=== PATIENT | female | born 1955 | race Caucasian/White ===

== ENCOUNTER 2019-03-21 14:27 | Emergency (ER) | payer MEDICAID ==
[~2019-03-21] VITALS: Ht 165.1 cm; Wt 68.9 kg
[2019-03-21 14:43] VITALS: BP 156/79; PULSE 69; RESP 20; Ht 165.1 cm; Wt 68.9 kg
== END 2019-03-21 17:20 | disposition home or self-care (01) ==
LOC: FTE 14:27
DX: S00.83XA Contusion of other part of head, initial encounter (principal); R51 Headache; S00.12XA Contusion of left eyelid and periocular area, initial encounter; S00.11XA Contusion of right eyelid and periocular area, initial encounter; W01.198A Fall on same level from slipping, tripping and stumbling with subsequent striking against other object, initial encounter; Y92.9 Unspecified place or not applicable
CPT/HCPCS: 70450; 70480; 72125; Z7502